=== PATIENT | male | born 1990 | race Caucasian/White ===

== ENCOUNTER 2020-10-01 16:45 | Emergency (ER) | payer BC ==
[~2020-10-01] VITALS: Ht 172.7 cm; Wt 84.5 kg
[2020-10-01 17:15] VITALS: BP 117/68
[2020-10-01] MEDS ORDERED: HYDR28CR14 TOP (17:43)
[2020-10-01] MEDS ORDERED: PRED10TA23 PO (17:43)
[2020-10-01] MEDS ORDERED: triamcinolone acetonide 40mg/ml inj IM ONE (17:45)
== END 2020-10-01 17:59 | disposition home or self-care (01) ==
LOC: ER 16:46
DX: L23.7 Allergic contact dermatitis due to plants, except food (principal)
CPT/HCPCS: 96372; 99283; J3301